=== PATIENT | female | born 1955 | race Caucasian/White ===

== ENCOUNTER 2024-10-17 08:31 | Day surgery (SDC) | payer MEDICARE, BC ==
[~2024-10-17 08:31] MED LIST: propofoL 500 MG/50 ML 50 ML ONE
[2024-10-17] MEDS: Lactated Ringers 1,000 ML IV SCH (09:15)
[2024-10-17] MEDS ORDERED: Lidocaine 2% 5 ML SDV ONE (09:54)
[2024-10-17] MEDS ORDERED: Esmolol 100 MG/10 ML SDV ONE (10:33)
[2024-10-18 12:28] VITALS: BP 153/85; PULSE 82
== END 2024-10-17 11:45 | disposition home or self-care (01) ==
LOC: MW.SDS 08:31
PROVIDERS: ATTEND Surgery
DX: K29.50 Unspecified chronic gastritis without bleeding (principal); K20.90 Esophagitis, unspecified without bleeding; D50.9 Iron deficiency anemia, unspecified; K57.30 Diverticulosis of large intestine without perforation or abscess without bleeding; K64.8 Other hemorrhoids; K63.89 Other specified diseases of intestine; K44.9 Diaphragmatic hernia without obstruction or gangrene; K22.89 Other specified disease of esophagus; E66.01 Morbid (severe) obesity due to excess calories; I10 Essential (primary) hypertension; Z68.39 Body mass index [BMI] 39.0-39.9, adult; Z79.899 Other long term (current) drug therapy
CPT/HCPCS: 43239; 45378; 88305; 88342; J1805; J2003; J2704; J7120; 00813

== ENCOUNTER 2024-11-13 06:20 | Day surgery (SDC) | payer MEDICARE, BC ==
[2024-11-13] MEDS: Lactated Ringers 1,000 ML IV SCH (07:10)
[2024-11-13] MEDS ORDERED: fentaNYL 100 MCG/2 ML SDV ONE (07:34)
[2024-11-13] MEDS ORDERED: Propofol 200 MG/20 ML SDV ONE (07:34)
[2024-11-13] MEDS ORDERED: Lidocaine 1% 5 ML VIAL ONE (07:35)
[2024-11-13] MEDS ORDERED: Dexamethasone 4 MG/ML 5 ML MDV ONE (07:35)
[2024-11-13] MEDS ORDERED: Ondansetron 4 MG/2 ML SDV ONE (07:35)
[2024-11-13] MEDS ORDERED: HYDROmorphone 1 MG/ML Syringe IVPUSH PRN (07:36)
[2024-11-13] MEDS ORDERED: fentaNYL 50 MCG/ML SDV IVPUSH PRN (07:36)
[2024-11-13] MEDS ORDERED: Ondansetron 4 MG/2 ML SDV IVPUSH PRN (07:36)
[2024-11-13] MEDS ORDERED: Phenylephrine HCl In 0.9% NaCl 1 MG/10 ML Syringe IVPUSH PRN (07:36)
[2024-11-13] MEDS ORDERED: Albuterol 0.083% 2.5 MG/3 ML Neb Soln NEB PRN (07:36)
[2024-11-13] MEDS ORDERED: Naloxone 0.4 MG/ML SDV IVPUSH PRN (07:36)
[2024-11-13] MEDS ORDERED: Metoclopramide 10 MG/2 ML SDV IVPUSH PRN (07:36)
[2024-11-13] MEDS ORDERED: Morphine 2 MG/ML SYRINGE IVPUSH PRN (07:36)
[2024-11-13] MEDS ORDERED: ePHEDrine 50 MG/ML SDV ONE (08:13)
[2024-11-13] MEDS ORDERED: Phenylephrine HCl In 0.9% NaCl 1 MG/10 ML Syringe ONE (08:14)
[2024-11-13] MEDS ORDERED: Ketorolac 30 MG/ML SDV ONE (08:18)
[2024-11-13 10:19] VITALS: BP 149/59; PULSE 90
== END 2024-11-13 09:35 | disposition home or self-care (01) ==
LOC: MW.SDS 06:20
PROVIDERS: ATTEND Obstetrics & Gynecology
DX: N84.0 Polyp of corpus uteri (principal); D25.0 Submucous leiomyoma of uterus; I10 Essential (primary) hypertension; E66.9 Obesity, unspecified; Z68.41 Body mass index [BMI] 40.0-44.9, adult; Z79.84 Long term (current) use of oral hypoglycemic drugs; Z79.899 Other long term (current) drug therapy
CPT/HCPCS: 57505; 58558; J1100; J1885; J2003; J2371; J2704; J3010; J7120; 00952; J2405; J3490